=== PATIENT | male | born 1970 | race Caucasian/White ===

== ENCOUNTER 2018-10-15 14:51 | Inpatient (IN) | payer OTHER | END 2018-10-19 09:00 | disposition home or self-care (01) | LOC: YASAS 14:51 → Y3N 18:43 ==

== ENCOUNTER 2020-02-15 20:29 | Inpatient (IN) | payer OTHER ==
[2020-02-15 20:59] VITALS: BMI 36.4
--- NOTE | 2020-02-16 01:30 | HP ---
COWS - Scale Resting Pulse: 1= ID [id number] Sweatin=Flushed/Facial Moisture Restless Observation: 0= Sits Still Pupil Size: 0= Normal to Room Light Bone or Joint Aches: 4=Acute Joint/Muscle Pain Runny Nose/ Eye Tearin= None GI Upset > 30mins: 1= Stomach Cramp Tremor Observation: 2= Slight Tremor Visible Yawning Observation: 0= None Anxiety or Irritability: 4=Extreme Anxiety Goose Flesh Skin: 0=Smooth Skin COWS Score: 14 CIWA Score - Admission Criteria OASAS Guidelines: Admission for Medically Managed Detox: Requires at least one of the followin. CIWA greater than 12 2. Seizures within the past 24 hours 3. Delirium tremens within the past 24 hours 4. Hallucinations within the past 24 hours 5. Acute intervention needed for co occurring medical disorder 6. Acute intervention needed for co occurring psychiatric disorder 7. Severe withdrawal that cannot be handled at a lower level of care (continued vomiting, continued diarrhea, abnormal vital signs) requiring intravenous medication and/or fluids 8. Admitting History and Physical - Smoking History Smoking history: Current every day smoker Have you smoked in the past 12 months: Yes Aproximately how many cigarettes per day: 10 - Alcohol/Substance Use Hx Alcohol Use: Yes Admission ROS [facility] - [facility] Chief Complaint: Seeking admission to detox from heroin Allergies/Adverse Reactions: Allergies Allergy/AdvReac Type Severity Reaction Status Date / Time No Known Allergies Allergy Verified 10/15/18 18:11 History of Present Illness: 49 years old male with about 7 years of heroin dependence is seeking admission to detox. His last admission was for the period 10/15/2018- 10/19/2018 and he relapsed in July 2019. He reports use of 10 -16 bags of heroin daily. He reports history of Hep. C (treated), psych. history of depression, insomnia, anxiety and he denies suicidal ideation at this time. He is unemployed, lives with his family and denies pending legal issues. He denies blackouts or history of overdose. Exam Limitations: No Limitations - Ebola screening Have you traveled outside of the country in the last 21 days: No Have you had contact with anyone from an Ebola affected area: No Have you been sick,other than usual withdrawal symptoms: No Do you have a fever: No - Review of Systems Constitutional: Chills, Loss of Appetite, Malaise, Night Sweats, Changes in sleep EENT: reports: No Symptoms Reported Respiratory: reports: No Symptoms reported Cardiac: reports: No Symptoms Reported GI: reports: Nausea, Poor Fluid Intake, Abdominal cramping : reports: No Symptoms Reported Musculoskeletal: reports: Back Pain, Other (bilateral leg pain) Integumentary: reports: Dryness, Flushing Neuro: reports: Headache, Tremors Endocrine: reports: No Symptoms Reported Hematology: reports: No Symptoms Reported Psychiatric: reports: Mood/Affect Appropiate, Orientated x3, Anxious, Depressed Other Systems: Reviewed and Negative Patient History - Patient Medical History Hx Anemia: No Hx Asthma: No Hx Chronic Obstructive Pulmonary Disease (COPD): No Hx Cancer: No Hx Cardiac Disorders: No Hx Congestive Heart Failure: No Hx Hypertension: No Hx Hypercholesterolemia: No Hx Pacemaker: No HX Cerebrovascular Accident: No Hx Seizures: No Hx Dementia: No Hx Diabetes: No Hx Gastrointestinal Disorders: No Hx Liver Disease: Yes (hepatitis c treated) Hx Genitourinary Disorders: No Hx Sexually Transmitted Disorders: No Hx Renal Disease (ESRD): No Hx Thyroid Disease: No Hx Human Immunodeficiency Virus (HIV): No (Negative 2017) Hx Hepatitis C: Yes (treated) Hx Depression: Yes (+ anxiety) Hx Suicide Attempt: No (Denies suicidal ideation at this time) Hx Bipolar Disorder: No Hx Schizophrenia: No - Patient Surgical History Past Surgical History: Yes Hx Neurologic Surgery: No Hx Cataract Extraction: No Hx Cardiac Surgery: No Hx Lung Surgery: No Hx Breast Surgery: No Hx Breast Biopsy: No Hx Abdominal Surgery: No Hx Appendectomy: No Hx Cholecystectomy: No Hx Genitourinary Surgery: No Hx Section: No Hx Orthopedic Surgery: Yes (total right knee replacement 5 years ago) Anesthesia Reaction: No - PPD History Previous Implant?: Yes Documented Results: Negative w/proof Implanted On Prior R Admission?: Yes Date: 10/17/18 PPD to be Administered?: Yes - Reproductive History Patient is a Female of Child Bearing Age (11 -55 yrs old): No (Male) - Smoking Cessation Smoking history: Current every day smoker Have you smoked in the past 12 months: Yes Aproximately how many cigarettes per day: 10 Hx Chewing Tobacco Use: No Initiated information on smoking cessation: Yes 'Breaking Loose' booklet given: 02/16/20 - Substance & Tx. History Hx Alcohol Use: No Hx Substance Use: Yes Substance Use Type: Cocaine, Heroin, Marijuana Hx Substance Use Treatment: Yes ([facility]) - Substances abused Heroin Substance route: Injection Frequency: Daily Amount used: 10-16 bags Age of first use: 17 Date of last use: 02/15/20 Admission Physical Exam [facility] - Vital Signs Vital Signs: Vital Signs - 24 hr 02/15/20 02/16/20 20:57 01:07 Temperature 97.6 F 97.3 F L Pulse Rate 89 90 Respiratory 19 18 Rate Blood Pressure 114/69 130/81 - Physical General Appearance: Yes: Moderate Distress, Tremorous, Anxious HEENTM: Yes: Within Normal Limits Respiratory: Yes: Lungs Clear, Normal Breath Sounds, No Respiratory Distress Neck: Yes: Within Normal Limits Breast: Yes: Breast Exam Deferred Cardiology: Yes: Regular Rhythm, Regular Rate Abdominal: Yes: Normal Bowel Sounds Genitourinary: Yes: Within Normal Limits Back: Yes: Normal Inspection Musculoskeletal: Yes: Within Normal Limits Extremities: Yes: Tremors Neurological: Yes: Within Normal Limits Integumentary: Yes: Warm Lymphatic: Yes: Within Normal Limits - Diagnostic (1) Cocaine dependence Current Visit: Yes Status: Chronic (2) Cannabis dependence Current Visit: Yes Status: Chronic (3) Depression Current Visit: Yes Status: Resolved Qualifiers: Depression Type: major depressive disorder (4) IVDU (intravenous drug user) Current Visit: Yes Status: Chronic (5) Insomnia Current Visit: Yes Status: Chronic (6) Nicotine dependence Current Visit: Yes Status: Chronic Qualifiers: Nicotine product type: cigarettes Substance use status: uncomplicated Qualified Code(s): F17.210 - Nicotine dependence, cigarettes, uncomplicated (7) Opioid dependence with withdrawal Current Visit: Yes Status: Acute (8) Hepatitis C Current Visit: Yes Status: Inactive Qualifiers: Viral hepatitis chronicity: chronic Hepatic coma status: without hepatic coma Qualified Code(s): B18.2 - Chronic viral hepatitis C Cleared for Admission [facility] - Detox or Rehab [facility] Level of Care: Medically Managed Detox Regimen/Protocol: Methadone Claeared for Rehab Admission: No Breathalyzer - Breathalyzer Breathalyzer: 0 Urine Drug Screen - Test Device Lot number: [id number] Expiration date: 09/12/21 - Control Is test valid?: Yes - Results Drug screen NEGATIVE: No Urine drug screen results: THC-Marijuana, SANJUANITA-Cocaine, FEN-Fentanyl, MOP- Opiates, MTD-Methadone Inpatient Rehab Admission - Rehab Decision to Admit Inpatient rehab admission?: No
[2020-02-16] MEDS ORDERED: NICOTINE POLACRILEX 2 MG GUM BUC PRN (01:44)
[2020-02-16] MEDS ORDERED: MAGNESIUM CITRATE 300 ML BOTTLE PO PRN (01:44)
[2020-02-16] MEDS ORDERED: ONDANSETRON *ODT* 4 MG TABLET SL PRN (01:44)
[2020-02-16] MEDS ORDERED: cloNIDine HCL 0.1 MG TABLET PO PRN (01:44)
[2020-02-16] MEDS ORDERED: IBUPROFEN 400 MG TABLET (FP) PO PRN (01:44)
[2020-02-16] MEDS ORDERED: MAG HYDROX/AL HYDROX/SIMETH 30 ML UNIT-DOSE CUP PO PRN (01:44)
[2020-02-16] MEDS ORDERED: hydrOXYzine PAMOATE 25 MG CAPSULE (FP) PO PRN (01:44)
[2020-02-16] MEDS ORDERED: MAGNESIUM HYDROX 2400MG/30ML ORAL SUSPENSION 30 ML CUP PO PRN (01:44)
[2020-02-16] MEDS ORDERED: MENTHOL/PHENOL 1 EACH UD MM PRN (01:44)
[2020-02-16] MEDS ORDERED: ACETAMINOPHEN 325 MG TABLET (FP) PO PRN ×2 (01:44)
[2020-02-16] MEDS ORDERED: METHADONE HCL 10 MG TABLET (FOR DETOX USE ONLY) PO ONE (02:30)
--- NOTE | 2020-02-16 09:01 | EKG ---
Test Reason : Blood Pressure : / mmHG Vent. Rate : 077 BPM Atrial Rate : 077 BPM P-R Int : 144 ms QRS Dur : 098 ms QT Int : 392 ms P-R-T Axes : 040 018 027 degrees QTc Int : 443 ms NORMAL SINUS RHYTHM NORMAL ECG WHEN COMPARED WITH ECG OF 15-OCT-2018 19:36, NO SIGNIFICANT CHANGE WAS FOUND Confirmed by EBONY CHISHOLM MD ([id number]) on 02/16/2020 9:00:56 AM Referred By: Speedy Tejeda Confirmed By:EBONY CHISHOLM MD
[2020-02-16] MEDS: PRENATAL VITAMINS W/ FOLIC ACID TABLET (FP) PO SCH (10:28)
[2020-02-16] MEDS: METHOCARBAMOL 500 MG TABLET PO PRN (10:28)
[2020-02-16] MEDS: NICOTINE 14 MG/24 HOURS TOPICAL PATCH TD SCH (10:29)
[2020-02-16] MEDS: BISMUTH SUBSALICYLATE 524 MG/30 ML UD PO PRN (10:32)
[2020-02-16 10:37] LABS: HEMATOCRIT 39.6 % (35.4-49); HEMOGLOBIN 13.3 GM/dL (11.7-16.9); MCHC 33.5 g/dl (32.0-35.9); MEAN CELL VOLUME 86.7 fl (80-96); MEAN PLT VOLUME 9.2 fl (7.5-11.1); PLATELET COUNT 130 K/MM3 (134-434); RBC 4.57 M/mm3 (4.00-5.60); WHITE BLOOD COUNT 5.8 K/mm3 (4.0-10.0)
[2020-02-16 10:59] LABS: ALBUMIN 3.4 g/dl (3.4-5.0); BILIRUBIN,TOTAL 0.3 mg/dL (0.2-1); BLOOD UREA NITROGEN 18.6 mg/dL (7-18); CALCIUM 8.6 mg/dL (8.5-10.1); CREATININE 0.9 mg/dL (0.55-1.3); TOT PROT 6.7 g/dl (6.4-8.2)
--- NOTE | 2020-02-16 11:28 | PN ---
BHS COWS - Scale Resting Pulse: 0= [place] 80 or Below Sweatin= No chills or Flushing Restless Observation: 1= Difficult to Sit Still Pupil Size: 0= Normal to Room Light Bone or Joint Aches: 1= Mild Discomfort Runny Nose/ Eye Tearin= Runny Nose/Eyes GI Upset > 30mins: 2= Nausea/Diarrhea Tremor Observation of Outstretched Hands: 0= None Yawning Observation: 0= None Anxiety or Irritability: 2=Irritable/Anxious Goose Flesh Skin: 0=Smooth Skin COWS Score: 8 BHS Progress Note (SOAP) Subjective: Complains of withdrawal sx including: restlessness, bone aches, nose runny, diarrhea, anxiety Objective: 02/16/20 11:32 PE Gnl: WDWN, in mild distress MS: nl mentation, anxious, slightly irritable Motor: moves well Gait; steady Coordination: nl Laboratory Tests 02/16/20 02/16/20 02/16/20 08:10 08:10 08:10 WBC 5.8 RBC 4.57 Hgb 13.3 Hct 39.6 MCV 86.7 MCH 29.0 MCHC 33.5 RDW 14.0 Plt Count 130 L MPV 9.2 Sodium 140 Potassium 4.0 Chloride 106 Carbon Dioxide 29 Anion Gap 5 L BUN 18.6 H Creatinine 0.9 Est GFR (CKD-EPI)AfAm 117.47 Est GFR (CKD-EPI)NonAf 101.35 Random Glucose 79 Calcium 8.6 Total Bilirubin 0.3 AST 21 ALT 23 Alkaline Phosphatase 56 Total Protein 6.7 Albumin 3.4 Syphilis Serology Non-reactive Home Medication List Medication Instructions Recorded Confirmed Type Omeprazole Magnesium [Prilosec Otc] 20 mg PO DAILY 10/15/18 10/15/18 History Active Medications Generic Name Dose Route Start Last Admin Trade Name Freq PRN Reason Stop Dose Admin Acetaminophen 650 mg 02/16/20 01:44 Tylenol - PO Q6H PRN PAIN LEVEL 4 - 6 Acetaminophen 650 mg 02/16/20 01:44 Tylenol - PO Q6H PRN FEVER Al Hydroxide/Mg Hydroxide 30 ml 02/16/20 01:44 Mylanta Oral Suspension - PO Q6H PRN DYSPEPSIA Bismuth Subsalicylate 524 mg 02/16/20 01:44 02/16/20 10:32 Pepto-Bismol - PO 524 mg Q1H PRN Administration DIARRHEA Clonidine 0.1 mg 02/16/20 01:44 Catapres - PO 02/18/20 23:59 Q4H PRN Withdrawal Symptoms Eucalyptus/Menthol/Phenol/Sorbitol 1 each 02/16/20 01:44 Cepastat Lozenge - MM 02/22/20 01:44 Q4H PRN SORE THROAT Hydroxyzine Pamoate 25 mg 02/16/20 01:44 02/16/20 10:28 Vistaril - PO 02/22/20 01:45 25 mg Q4HWA PRN Administration ANXIETY Ibuprofen 400 mg 02/16/20 01:44 Motrin - PO Q6H PRN PAIN LEVEL 1 - 3 Magnesium Citrate 300 ml 02/16/20 01:44 Citroma - PO Q48H PRN CONSTIPATION Magnesium Hydroxide 30 ml 02/16/20 01:44 Milk Of Magnesia - PO PRN PRN CONSTIPATION Melatonin 5 mg 02/16/20 22:00 Melatonin PO HS PARUL Methadone HCl 5 mg 02/21/20 06:00 Dolophine - PO 02/21/20 06:01 ONCE@0600 ONE Methadone HCl 10 mg 02/20/20 10:00 Dolophine - PO 02/20/20 10:01 ONCE ONE Methadone HCl 20 mg 02/18/20 10:00 Dolophine - PO 02/18/20 10:01 ONCE ONE Methadone HCl 20 mg/ Methadone 25 mg 02/17/20 10:00 HCl 5 mg PO 02/17/20 10:01 ONCE ONE Methadone HCl 10 mg/ Methadone 15 mg 02/19/20 10:00 HCl 5 mg PO 02/19/20 10:01 ONCE ONE Methocarbamol 500 mg 02/16/20 01:44 02/16/20 10:28 Robaxin - PO 02/22/20 01:44 500 mg Q6H PRN Administration MUSCLE SPASMS Nicotine 14 mg 02/16/20 10:00 02/16/20 10:29 Nicoderm Patch - TD Not Given DAILY [facility] Nicotine Polacrilex 2 mg 02/16/20 01:44 Nicorette Gum - BUC Q2H PRN NICOTINE REPLACEMENT RX Ondansetron HCl 4 mg 02/16/20 01:44 Zofran Odt - SL Q8H PRN Nausea/Vomiting Multivit/Folic Acid/Iron 1 tab 02/16/20 10:00 02/16/20 10:28 Vitamins (Sjr) - PO 1 tab DAILY PARUL Administration Thiamine HCl 100 mg 02/16/20 22:00 Vitamin B1 - PO HS PARUL Assessment: 02/16/20 11:33 1. Opioid withdrawal; 2. Nicotine dependence Plan: 1. Methadone detox protocol started earlier today, projected completion on 02/20 2. Nicotine patch
--- NOTE | 2020-02-16 17:24 | CONSULT ---
[facility] Psychiatric Consult - Data Date of interview: 02/16/20 Admission source: [facility] Identifying data: Revisit to [facility] and admission to [address] [place] [address] for this 49 y/o male self-referred for detoxification treatment. JARAD issues : heroin, cannabis cocaine, nicotine. Patient is , a father of six (4 biologicals + 2 stepchildren), domiciled, unemployed and supported by relatives. Substance Abuse History: Discussed with the patient. JARAD profile as follows : Smoking history: Current every day smoker. Have you smoked in the past 12 months: Yes. Approximately how many cigarettes per day: 10. Hx Chewing Tobacco Use: No. Initiated information on smoking cessation: Yes. 'Breaking Loose' booklet given: 02/16/20. - Substance & Tx. History. Hx Alcohol Use: No. Hx Substance Use: Yes. Substance Use Type: Cocaine, Heroin, Marijuana. Hx Substance Use Treatment: Yes ([facility]). - Substances abused. Heroin. Substance route: Injection. Frequency: Daily. Amount used: 10-16 bags. Age of first use: 17. Date of last use: 02/15/20. History of prior JARAD treatment failures. Medical History: Medical profile is remarkable for hepatitis C (treated), obesity and history of orthosurgery (total right knee replacement). No known allergies. Psychiatric History: Patient denies history of psychiatric hospitalizations but he endorses past OPD care under the diagnoses of MDD and Anxiety Disorder. Does not recall names or location of prodiders. Mr Parnell indicates prior treatment maintenance with remeron, trazodone, bupropion and sertraline. Non adherent to psychotropic medications for months. Completely lost to follow-up. Patient denies history of suicide attempts. Physical/Sexual Abuse/Trauma History: Patient denies history of abuse. Additional Comment: Urine drug screen results: THC-Marijuana, SANJUANITA-Cocaine, FEN- Fentanyl, MOP-Opiates, MTD-Methadone. Noted. Mental Status Exam - Mental Status Exam Alert and Oriented to: Time, Place, Person Cognitive Function: Good Patient Appearance: Unkempt, Disheveled (short stature, overweight) Mood: Withdrawn, Hopeful Affect: Mood Congruent, Constricted Patient Behavior: Fatigued, Appropriate, Cooperative Speech Pattern: Clear, Appropriate Voice Loudness: Normal Thought Process: Intact, Goal Oriented Thought Disorder: Not Present Hallucinations: Denies Suicidal Ideation: Denies Homicidal Ideation: Denies Insight/Judgement: Poor Sleep: Poorly, Difficulty falling asleep Appetite: Good Gait/Station: Normal Psychiatric Findings - Problem List ([place] 1, 2,3) (1) Opioid dependence with withdrawal Current Visit: Yes Status: Acute (2) Cannabis dependence Current Visit: Yes Status: Chronic (3) Cocaine dependence Current Visit: Yes Status: Chronic (4) Nicotine dependence Current Visit: Yes Status: Chronic Qualifiers: Nicotine product type: cigarettes Substance use status: uncomplicated Qualified Code(s): F17.210 - Nicotine dependence, cigarettes, uncomplicated (5) Substance induced mood disorder Current Visit: Yes Status: Chronic (6) Insomnia Current Visit: Yes Status: Chronic - Initial Treatment Plan Initial Treatment Plan: Psychoeducation. Sleep hygiene. Detoxification in progress. Trazodone 50 mg po hs. Ordered at patient's request. Mr Parnell is made aware of risk of priapism. [place] consent (verbal) to MD. [place].
[2020-02-16] MEDS: traZODone HCL 50 MG TABLET (FP) PO SCH (22:22)
[2020-02-16] MEDS: THIAMINE HCL 100 MG TABLET (FP) PO SCH (22:22)
[2020-02-16] MEDS: MELATONIN 5 MG TABLETS PO SCH (22:22)
[2020-02-17] MEDS ORDERED: METHADONE HCL 10 MG TABLET (FOR DETOX USE ONLY) ONE (09:36)
[2020-02-17] MEDS ORDERED: METHADONE HCL 5 MG TABLET (FOR DETOX USE ONLY) ONE (09:37)
[2020-02-17] MEDS: PRENATAL VITAMINS W/ FOLIC ACID TABLET (FP) PO SCH (09:37)
[2020-02-17] MEDS: METHOCARBAMOL 500 MG TABLET PO PRN (09:39)
[2020-02-17] MEDS: NICOTINE 14 MG/24 HOURS TOPICAL PATCH TD SCH (09:40)
[2020-02-17] MEDS ORDERED: METHADONE (DETOX) 20 MG, METHADONE (DETOX) 5 MG PO ONE (10:00)
--- NOTE | 2020-02-17 12:35 | PN ---
BHS COWS - Scale Resting Pulse: 0= [place] 80 or Below Sweatin= Chills/Flushing Restless Observation: 1= Difficult to Sit Still Pupil Size: 0= Normal to Room Light Bone or Joint Aches: 2= Severe Diffuse Aches Runny Nose/ Eye Tearin= None GI Upset > 30mins: 0= None Tremor Observation of Outstretched Hands: 0= None Yawning Observation: 1= 1-2x During Session Anxiety or Irritability: 2=Irritable/Anxious Goose Flesh Skin: 0=Smooth Skin COWS Score: 7 S Progress Note (SOAP) Subjective: c/o chills, anxiety, irritability, and muscle aches. Objective: 02/17/20 12:34 Vital Signs 02/17/20 08:39 Temperature 96.8 F L Pulse Rate 66 Respiratory 17 Rate Blood Pressure 125/82 Laboratory Last Values WBC 5.8 K/mm3 (4.0-10.0) 02/16/20 08:10 RBC 4.57 M/mm3 (4.00-5.60) 02/16/20 08:10 Hgb 13.3 GM/dL (11.7-16.9) 02/16/20 08:10 Hct 39.6 % (35.4-49) 02/16/20 08:10 MCV 86.7 fl (80-96) 02/16/20 08:10 MCH 29.0 pg (25.7-33.7) 02/16/20 08:10 MCHC 33.5 g/dl (32.0-35.9) 02/16/20 08:10 RDW 14.0 % (11.9-15.9) 02/16/20 08:10 Plt Count 130 K/MM3 (134-434) L 02/16/20 08:10 MPV 9.2 fl (7.5-11.1) 02/16/20 08:10 Sodium 140 mmol/L (136-145) 02/16/20 08:10 Potassium 4.0 mmol/L (3.5-5.1) 02/16/20 08:10 Chloride 106 mmol/L (98-107) 02/16/20 08:10 Carbon Dioxide 29 mmol/L (21-32) 02/16/20 08:10 Anion Gap 5 MMOL/L (8-16) L 02/16/20 08:10 BUN 18.6 mg/dL (7-18) H 02/16/20 08:10 Creatinine 0.9 mg/dL (0.55-1.3) 02/16/20 08:10 Est GFR (CKD-EPI)AfAm 117.47 02/16/20 08:10 Est GFR (CKD-EPI)NonAf 101.35 02/16/20 08:10 Random Glucose 79 mg/dL (74-106) 02/16/20 08:10 Calcium 8.6 mg/dL (8.5-10.1) 02/16/20 08:10 Total Bilirubin 0.3 mg/dL (0.2-1) 02/16/20 08:10 AST 21 U/L (15-37) 02/16/20 08:10 ALT 23 U/L (13-61) 02/16/20 08:10 Alkaline Phosphatase 56 U/L (45-117) 02/16/20 08:10 Total Protein 6.7 g/dl (6.4-8.2) 02/16/20 08:10 Albumin 3.4 g/dl (3.4-5.0) 02/16/20 08:10 Syphilis Serology Non-reactive (NONREACTIVE) 02/16/20 08:10 COVID-19 (JASSON) Not detected (Not Detected) 02/16/20 09:00 Labs noted. Assessment: 02/17/20 12:34 AOX3, in no acute respiratory distress. Full ROM, ambulating in the unit. Withdrawal symptoms. Plan: continue detox.
[2020-02-17] MEDS ORDERED: MASKS NR ONE (14:45)
[2020-02-17] MEDS: THIAMINE HCL 100 MG TABLET (FP) PO SCH (23:00)
[2020-02-17] MEDS: MELATONIN 5 MG TABLETS PO SCH (23:00)
[2020-02-17] MEDS: traZODone HCL 50 MG TABLET (FP) PO SCH (23:00)
[2020-02-18 09:43] VITALS: BP 129/83; PULSE 65; TEMP 97.3
[2020-02-18] MEDS ORDERED: METHADONE HCL 10 MG TABLET (FOR DETOX USE ONLY) PO ONE (10:00)
--- NOTE | 2020-02-18 10:11 | DS ---
[facility] Detox Discharge Summary Admission Date: 02/16/20 Discharge Date: 02/18/20 - History Present History: Opioid Dependence Additional Comments: 49 years old male was admitted on 02/16/20 for opiate withdrawal sx management treated with methadone detox regiment mr farah insists to leave the detox unit today rejects aftercare "I am not ready" mr farah states that he been detox few times in the past and he is not ready to be detoxed today mr is alert oriented x 3 speech clearly coherently ambulating steady gait General Appearance: Yes: no Distress, mild Tremorous, mild Anxious HEENTM: Yes: Within Normal Limits Respiratory: Yes: Lungs Clear, Normal Breath Sounds, No Respiratory Distress Neck: Yes: Within Normal Limits Breast: Yes: Breast Exam Deferred Cardiology: Yes: Regular Rhythm, Regular Rate Abdominal: Yes: Normal Bowel Sounds Genitourinary: Yes: Within Normal Limits Back: Yes: Normal Inspection Musculoskeletal: Yes: Within Normal Limits Extremities: Yes: Tremors Neurological: Yes: Within Normal Limits Integumentary: Yes: Warm Lymphatic: Yes: Within Normal Limits Pertinent Past History: time for discharge 52 minutes treatment team met with mr farah to discuss the benefits of methadone detox regiment completion encourage pickk up narcan from pharmacy and consider medication assisted treatment program mr farah states that he wants to leave and use heroin IV against medical advice is appropriated due to mr farah rejects aftercare emotional support given - Physical Exam Results Vital Signs: Vital Signs Temperature 97.3 F L 02/18/20 09:13 Pulse Rate 65 02/18/20 09:13 Respiratory Rate 20 02/18/20 09:13 Blood Pressure 129/83 02/18/20 09:13 O2 Sat by Pulse Oximetry (%) 97 02/18/20 06:02 Pertinent Admission Physical Exam Findings: opiate withdrawal Laboratory Tests 02/16/20 02/16/20 02/16/20 08:10 08:10 08:10 WBC 5.8 RBC 4.57 Hgb 13.3 Hct 39.6 MCV 86.7 MCH 29.0 MCHC 33.5 RDW 14.0 Plt Count 130 L MPV 9.2 Sodium 140 Potassium 4.0 Chloride 106 Carbon Dioxide 29 Anion Gap 5 L BUN 18.6 H Creatinine 0.9 Est GFR (CKD-EPI)AfAm 117.47 Est GFR (CKD-EPI)NonAf 101.35 Random Glucose 79 Calcium 8.6 Total Bilirubin 0.3 AST 21 ALT 23 Alkaline Phosphatase 56 Total Protein 6.7 Albumin 3.4 Syphilis Serology Non-reactive COVID-19 (JASSON) 02/16/20 09:00 WBC RBC Hgb Hct MCV MCH MCHC RDW Plt Count MPV Sodium Potassium Chloride Carbon Dioxide Anion Gap BUN Creatinine Est GFR (CKD-EPI)AfAm Est GFR (CKD-EPI)NonAf Random Glucose Calcium Total Bilirubin AST ALT Alkaline Phosphatase Total Protein Albumin Syphilis Serology COVID-19 (JASSON) Not detected lab noted mr farah intended to leave the detox and continue using heroin IV - Treatment Hospital Course: Detox Protocol Followed Patient has Accepted a Rehab Referral to: [facility] - Medication Discharge Medications: Ambulatory Orders Omeprazole Magnesium [Prilosec Otc] 20 mg PO DAILY 10/15/18 Naloxone HCl [Narcan] 4 mg NS ASDIR PRN #1 spray 02/18/20 - Diagnosis (1) Opioid dependence with withdrawal Status: Acute (2) IVDU (intravenous drug user) Status: Chronic (3) Nicotine dependence Status: Acute Qualifiers: Nicotine product type: cigarettes Substance use status: in withdrawal Qualified Code(s): F17.213 - Nicotine dependence, cigarettes, with withdrawal (4) Substance induced mood disorder Status: Suspected (5) Hepatitis C Status: Chronic Qualifiers: Viral hepatitis chronicity: chronic Hepatic coma status: without hepatic coma Qualified Code(s): B18.2 - Chronic viral hepatitis C - AMA Did Patient Leave Against Medical Advice: Yes COWS (PN) - Opiate Withdrawal Resting Pulse: 0= [place] 80 or Below Sweatin= No chills or Flushing Restless Observation: 0= Sits Still Pupil Size: 0= Normal to Room Light Bone or Joint Aches: 0= None Runny Nose/ Eye Tearin= Nasal Congestion GI Upset > 30mins: 2= Nausea/Diarrhea Tremor Observation of Outstretched Hands: 1= Tremor [place], Not Seen Yawning Observation: 0= None Anxiety or Irritability: 2=Irritable/Anxious Goose Flesh Skin: 0=Smooth Skin COWS Score: 6
[2020-02-18] MEDS: BISMUTH SUBSALICYLATE 524 MG/30 ML UD PO PRN (10:46)
[2020-02-18] MEDS: PRENATAL VITAMINS W/ FOLIC ACID TABLET (FP) PO SCH (10:46)
[2020-02-18] MEDS: METHOCARBAMOL 500 MG TABLET PO PRN (10:46)
[2020-02-18] MEDS: NICOTINE 14 MG/24 HOURS TOPICAL PATCH TD SCH (10:47)
[2020-02-19] MEDS ORDERED: METHADONE (DETOX) 10 MG, METHADONE (DETOX) 5 MG PO ONE (10:00)
[2020-02-20] MEDS ORDERED: METHADONE HCL 10 MG TABLET (FOR DETOX USE ONLY) PO ONE (10:00)
[2020-02-21] MEDS ORDERED: METHADONE HCL 5 MG TABLET (FOR DETOX USE ONLY) PO ONE (06:00)
== END 2020-02-18 14:36 | disposition left against medical advice (07) | DRG 770 ==
LOC: YASAS 20:29 → Y3N 02-16 01:27
PROVIDERS: ADMIT Allergy & Immunology; ATTEND Allergy & Immunology
PROC: HZ2ZZZZ Detoxification Services for Substance Abuse Treatment (ICD-10-PCS; principal; 2020-02-16)
DX: F11.23 Opioid dependence with withdrawal (principal); F14.20 Cocaine dependence, uncomplicated; F12.20 Cannabis dependence, uncomplicated; F17.210 Nicotine dependence, cigarettes, uncomplicated; F19.24 Other psychoactive substance dependence with psychoactive substance-induced mood disorder; F41.9 Anxiety disorder, unspecified; F32.9 Major depressive disorder, single episode, unspecified; G47.00 Insomnia, unspecified; B18.2 Chronic viral hepatitis C; E66.9 Obesity, unspecified; Z68.36 Body mass index [BMI] 36.0-36.9, adult; Z96.651 Presence of right artificial knee joint; Z56.0 Unemployment, unspecified
CPT/HCPCS: 36415; 80053; 85027; 86780; 93005; 93010; U0003